=== PATIENT | female | born 1960 | race Caucasian/White ===

== ENCOUNTER 2016-06-05 09:24 | Emergency (ER) | payer OTHER ==
[~2016-06-05] VITALS: Ht 157.5 cm; Wt 61.5 kg
[~2016-06-05 09:24] MED LIST: CIPR-255 PO; CYAN10005 PO; GABA-113 PO; MELO15TA3 PO; TRAM-10 PO
[2016-06-05 09:26] VITALS: TEMP 36.8; Ht 157.5 cm; Wt 61.5 kg
[2016-06-05] MEDS ORDERED: MoRPHine SULFATE 4 MG/ML 1 ML CARP\\VIAL IM STA (10:03)
[2016-06-05] MEDS ORDERED: IBUP-1427 PO (10:08)
[2016-06-05] MEDS ORDERED: TRAM-10 PO (10:29)
--- NOTE | 2016-06-05 10:30 | EMERGENCY ROOM VISIT NOTE ---
History First contact with patient: 09:35 Chief Complaint: HIP PAIN Stated Complaint: RT HIP, LEG, ARM AND CHEST History of Present Illness The patient is a 55 year old female who presents to the Emergency Room with complaints of chronic pain. The patient states she has a disc problem in her neck and her back. She has chronic pain in her neck with radiation to the right arm. She has chronic pain in her low back with radiation to her right leg. She states she has seen Dr. Barrientos in the past he recommended surgery that she states she is not ready for surgery. She states she has taken tramadol in the past but is out of the medication. She has been taking ibuprofen. She denies any new injury or fall. She denies any change in her symptoms. She presents solely for pain management. She denies any fevers or chills. She denies any pain in her chest or trouble breathing. She denies any weakness. She denies any loss of bowel or bladder control. She rates her discomfort 10/10. Review of Systems A 10 system review of systems was completed with positives and pertinent negatives listed in the HPI. Past Medical/Surgical History Chronic back and neck pain Family History Cancer Social History Smoking Status: Current Every Day Smoker Alcohol Use: none Marital Status: Housing Status: lives with family Occupation Status: employed Current/Historical Medications Scheduled Cyanocobalamin (Vitamin B-12), 1,000 MCG PO DAILY Gabapentin (Neurontin), 300 MG PO HS Meloxicam (Mobic), 15 MG PO BID Scheduled PRN Ibuprofen Tab (Motrin), 600 MG PO Q6H PRN for Pain Tramadol (Ultram), 1-2 TAB PO Q4H PRN for Pain Allergies Coded Allergies: No Known Allergies (Verified , 06/05/16) Physical Exam Vital Signs Date Time Temp Pulse Resp B/P Pulse Ox O2 Delivery O2 Flow Rate FiO2 06/05/16 11:02 67 16 103/67 98 06/05/16 10:37 67 16 103/67 98 Room Air 06/05/16 09:26 36.8 72 16 119/65 97 Room Air Physical Exam VITALS: Vitals are noted on the nurse's note and reviewed by myself. Vital signs stable. The patient is afebrile. GENERAL: This is a 55-year-old female, in no acute distress, nondiaphoretic, well-developed well-nourished. SKIN: The skin was without rashes, erythema, edema, or bruising. There is no tenting of the skin. Capillary reflex less than 2 seconds. HEAD: Normocephalic atraumatic. EARS: The external ears are normal in appearance. EYES: Pupils equal round and reactive to light and accommodation. Conjunctivae without injection, sclerae without icterus. Extraocular movements intact. NOSE: Patent, turbinates without inflammation or discharge. No sinus tenderness. MOUTH: Mucous membranes moist. Tonsils are not enlarged. Pharynx without erythema or exudate. Uvula midline. Airway patent. Tongue does not deviate. NECK: Supple without nuchal rigidity. Cervical spine is mildly tender. No JVD. HEART: Regular rate and rhythm without murmurs gallops or rubs. LUNGS: Clear to auscultation bilaterally without wheezes, rales or rhonchi. No retractions or accessory muscle use. ABDOMEN: Positive bowel sounds x 4. Soft, nontender, without masses or organomegaly. MUSCULOSKELETAL: No muscle atrophy, erythema, or edema noted. Full range of motion in all extremities. No tenderness to palpation. Strength 5/5 throughout. NEURO: Patient was alert and oriented to person place and time. Normal sensation to light and sharp touch. Deep tendon reflexes 2+ throughout. No focal neurological deficits. Medical Decision & Procedures Medications Administered Medications (Trade) Dose Ordered Sig/Debby Route Start Time Stop Time Status Last Admin Dose Admin Morphine Sulfate (MoRPHine SULFATE INJ) 4 mg NOW STAT IM 06/05/16 10:03 06/05/16 10:04 DC 06/05/16 10:12 4 MG ED Course The patient was seen and examined. Previous visits were reviewed. The patient is afebrile. She reports a history of chronic neck pain with radiculopathy and chronic low back pain with radiculopathy, all on the right side. She has been told that she should undergo surgery but states she is not ready for surgery. She states that her symptoms today are completely typical without any change in symptoms. She has not had any new falls or injuries. She does not have any neurologic deficit on exam or by history. She presents to the emergency department solely for pain management. She was given 4 mg IM morphine with marked improvement in her symptoms. She has done well with tramadol in the past and was given a prescription. She should follow-up with her family doctor and/or surgeon for further evaluation and management. She should return to the ER with any worsening symptoms, neurologic deficit or generalized worsening symptoms. Medical Decision DIFFERENTIAL DIAGNOSIS: Lumbar strain, degenerative disc disease, spondylolisthesis, herniated disc, spinal stenosis, osteoporosis, fracture, cauda equina syndrome, neoplasm, infection, inflammatory arthritis, among others. Impression Primary Impression: Chronic neck and back pain Departure Information Dispostion Home / Self-Care Condition GOOD Prescriptions Tramadol (Ultram) 50 Mg Tab 1-2 TAB PO Q4H Y for Pain, #36 TAB For Initial Treatment Prov: Mary Greco PA-C 06/05/16 Referrals RV. Prince MD (PCP) Evaristo Barrientos, DO Patient Instructions Back Pain - [facility], ED Neck Back Pain General, [facility] Additional Instructions Ultram as prescribed, as needed for pain Follow up with your family doctor and orthopedic surgeon for further evaluation and management Return with any new weakness, numbness, tingling, new symptoms or change in symptoms
[2016-06-05 11:02] VITALS: BP 103/67; PULSE 67; O2SAT 98
== END 2016-06-05 11:02 | disposition home or self-care (01) ==
LOC: C.EDB 09:25 → C.EDA 11:02
DX: M54.2 Cervicalgia (principal); M54.5 Low back pain; G89.29 Other chronic pain; F17.200 Nicotine dependence, unspecified, uncomplicated; Z79.899 Other long term (current) drug therapy

== ENCOUNTER → 2016-06-09 | Outpatient (CLI) | payer OTHER ==
[~2016-06-09] MED LIST changes: -CIPR-255 PO; +IBUP-1427 PO
[2016-06-09 16:23] LABS: HEMATOCRIT 38.5 % (37-47); MEAN CELL VOLUME 90.8 fL (80-100); MEAN CORPUSCULAR HEMOGLOBIN 30.7 pg (25-34); MEAN CORPUSCULAR HGB CONC 33.8 g/dl (32-36); MEAN PLATELET VOLUME 13.6 fL (7.4-10.4); PLATELET COUNT 126 K/uL (130-400); RED BLOOD COUNT 4.24 M/uL (4.2-5.4); WHITE BLOOD COUNT 8.43 K/uL (4.8-10.8)
[2016-06-09 16:33] LABS: BASO % 0.6 %; BASO ABS # 0.05 K/uL (0-0.2); COMPLETE YES; EOS % 3.1 %; IG% 0.2 %; LYMPH % 41.8 %; LYMPH ABS # 3.52 K/uL (1.2-3.4); MONO % 8.2 %; NEUT % 46.1 %
== END | disposition home or self-care (01) ==
LOC: C.LAB1850 14:28
PROVIDERS: ATTEND Internal Medicine
DX: D64.9 Anemia, unspecified (principal)

== ENCOUNTER → 2017-01-29 | Outpatient (CLI) | payer OTHER ==
[~2017-01-29] MED LIST changes: -TRAM-10 PO
[2017-01-29 14:56] LABS: MEAN CELL VOLUME 91.3 fL (80-100); RED BLOOD COUNT 4.71 M/uL (4.2-5.4); WHITE BLOOD COUNT 8.57 K/uL (4.8-10.8)
[2017-01-29 15:18] LABS: COMPLETE YES; LARGE PLATELETS 2+; PLATELET COUNT 131 K/uL (130-400); PLT ESTIMATE NORMAL
== END | disposition home or self-care (01) ==
LOC: C.LAB1850 13:59
PROVIDERS: ATTEND Internal Medicine
DX: D69.6 Thrombocytopenia, unspecified (principal)